=== PATIENT | female | born 1985 | race Caucasian/White ===

== ENCOUNTER 2018-02-22 13:34 | Emergency (ER) | payer OTHER ==
[~2018-02-22] VITALS: Ht 165.1 cm; Wt 72.6 kg
[2018-02-22 14:02] VITALS: BP 127/78
== END 2018-02-22 14:03 | disposition home or self-care (01) ==
LOC: M.ERS 13:34
DX: O26.893 Other specified pregnancy related conditions, third trimester (principal); R10.10 Upper abdominal pain, unspecified; Z3A.34 34 weeks gestation of pregnancy